=== PATIENT | male | born 1955 | race Caucasian/White ===

== ENCOUNTER → 2023-10-12 15:45 | Outpatient (REF) | payer MEDICARE, BC, SELFPAY | LOC: MRI 3T 15:45 | PROVIDERS: ATTENDING PHYSICIAN Orthopaedic Surgery Orthopaedic Trauma | DX: M67.911 Unspecified disorder of synovium and tendon, right shoulder (principal) | CPT/HCPCS: 73221 ==

== ENCOUNTER → 2024-02-21 08:17 | Outpatient (REF) | payer MEDICARE, BC, SELFPAY ==
[2024-02-21 10:27] LABS: ALT (SGPT) 22 U/L (0-50); AST (SGOT) 25 U/L (17-59); Albumin 3.9 g/dl (3.5-5.0); Alkaline Phosphatase 93 U/L (38-126); Blood Urea Nitrogen 26 mg/dl (9-20); Calcium 11.1 mg/dl (8.4-10.2); Carbon Dioxide 20 mmol/L (22-30); Chloride 109 mmol/L (98-107); Glucose 121 mg/dl (70-99); HDL Cholesterol 37 mg/dl; LDL Cholesterol, Calculated 74 mg/dl; Potassium 4.1 mmol/L (3.5-5.1); Sodium 141 mmol/L (135-145); Total Bilirubin 0.6 mg/dl (0.2-1.3); Total Cholesterol 133 mg/dl (50-199); Total Protein 6.4 g/dl (6.3-8.2); Triglyceride 110 mg/dl (10-149); Very Low Density Lipoprotein 22 mg/dl (0-30); eGFR 54.07
== END ==
LOC: REG 08:17
PROVIDERS: ATTENDING PHYSICIAN Internal Medicine Cardiovascular Disease; FAMILY PHYSICIAN Family Medicine
DX: E78.5 Hyperlipidemia, unspecified (principal)
CPT/HCPCS: 36415; 80053; 80061

== ENCOUNTER 2024-09-28 14:42 | Emergency (ER) | payer MEDICARE, BC, SELFPAY ==
[2024-09-28 14:46] VITALS: BP 147/71
[2024-09-28 15:49] LABS: % Basophils 0.4 % (0-2); % Immature Granulocytes 0.3 % (0-0.5); % Lymphocytes 25.3 % (20.5-51.1); % Monocytes 6.8 % (1.7-9.3); % Neutrophils 65.2 % (42.2-75.2); Absolute Eosinophils 0.2 10^3/uL (0-0.7); Absolute Lymphocytes 1.9 10^3/uL (1.2-3.4); Absolute Monocytes 0.5 10^3/uL (0.1-0.6); Absolute Neutrophils 4.9 10^3/uL (1.4-6.5); Hematocrit 43.3 % (39.0-52.0); Hemoglobin 15.6 g/dL (13.0-18.0); Mean Corpuscular Hgb 32.5 pg (27.0-31.0); Mean Corpuscular Volume 90.2 fL (80.0-94.0); Mean Platelet Volume 10.1 fL (7.4-10.4); Nucleated Red Blood Cells % 0 % (-); Platelet Count 157 10^3/uL (130-400); Red Cell Dist. Width 12.2 % (11.5-14.5); White Blood Cell Count 7.5 10^3/uL (4.8-10.8)
[2024-09-28 15:55] VITALS: BP 146/112; BMI 28.5
[2024-09-28 16:00] VITALS: BP 120/67
[2024-09-28 16:07] LABS: ALT (SGPT) 25 U/L (0-50); AST (SGOT) 30 U/L (17-59); Alkaline Phosphatase 75 U/L (38-126); Blood Urea Nitrogen 52 mg/dl (9-20); Calcium 10.7 mg/dl (8.4-10.2); Carbon Dioxide 24 mmol/L (22-30); Chloride 106 mmol/L (98-107); Estimated Creatinine Clearance 36 ml/min; Glucose 108 mg/dl (70-99); Potassium 3.6 mmol/L (3.5-5.1); Sodium 140 mmol/L (135-145); Total Bilirubin 1.2 mg/dl (0.2-1.3); Total Protein 6.9 g/dl (6.3-8.2); eGFR 37.48
--- NOTE | 2024-09-28 16:10 | ED.GENMED ---
History of Present Illness
<Devora Wilkes NP - Last Filed: 09/28/24 22:36>
General
Chief Complaint: Breathing Problem
Source: patient
Exam Limitations: none
Time Seen by Provider: 09/28/24 15:49
Nursing documentation reviewed up to this point in time: agreed with
History of Present Illness
History of Present Illness:
Patient to ED with complaint of fatigue, cough, SOB, diarrhea. Symptoms started on Tuesday. No fever but felt chilled. Poor appetite. He was evaluated by PCP today and sent to ED for course breath sounds and aflutter on EKG. He states he is
always in fib/flutter. On xarelto and reports compliance iwth meds. To ED accompanied by family for eval.
Past History
<Devora Wilkes FIRE INVESTIGATION MANAGER - Last Filed: 09/28/24 22:36>
Past History
ED Past Medical History: Arrthythmia (afib), HTN and Hypercholesterolemia
ED Past Surgical History: Orthopedic
Social History
Tobacco: Non-smoker
Alcohol: Other (10-12 beers/week)
Personal:
Living: with family
Review of Systems
<Devora Wilkes NP - Last Filed: 09/28/24 22:36>
Review of Systems
Allergies reviewed?: Yes
All Other Systems: ROS reviewed and negative except as documented in HPI and ROS
Constitutional: Reports fatigue and chills
EENT: Reports no symptoms
Respiratory: Reports cough and trouble breathing
Cardiac: Reports no symptoms
ABD/GI: Reports diarrhea
: Reports no symptoms
Musculoskeletal: Reports no symptoms
Skin: Reports no symptoms
Neurological: Reports weakness
Psychiatric: Reports no symptoms
Phy Exam
<Devora Wilkes NP - Last Filed: 09/28/24 22:36>
General Physical Exam
General Presentation: mild distress
General age: appears stated age
General Skin: warm and dry
General Habitus: normal
General Mental: alert
Cardiovascular Exam
Cardiovascular Exam: other (aflutter, rate 72)
Pulmonary Exam
Pulmonary Exam: decreased breath sounds
Cough: coarse cough
Musculoskeletal Exam
Musculoskeletal Exam: full ROM, no edema and neuro vasc intact
Skin Exam
Skin Exam: normal color, warm/dry and no rash
Psychiatric Exam
Psychiatric Exam: normal mood/affect
Scores
<Devora Wilkes FIRE INVESTIGATION MANAGER - Last Filed: 09/28/24 22:36>
Heart Failure Risk
Heart Failure Risk Score: Not Applicable
Course
<Devora Wilkes FIRE INVESTIGATION MANAGER - Last Filed: 09/28/24 22:36>
Orders/Labs/Results
Orders:
Orders
09/28/24 14:44
EKG [Electrocardiogram (*1)] Urgent
Reason for Study: Chest Pain
EKG- Treatment ONCE
09/28/24 15:42
Complete Blood Count/With Diff Urgent
Comprehensive Metabolic Panel Urgent
Troponin I Urgent
09/28/24 15:58
CR Chest - 2 Views Urgent
Comment:
Reason For Exam: SOb
09/28/24 16:12
0.9% Sodium Chloride 1000 ml [Nss] 1,000 ml IV BOLUS
09/28/24 16:31
COVID-19 Antigen Urgent
Source: Nasal Swab
Influenza A+B Rapid Molecular Urgent
ASHLEY Source: Nasal Swab
Specimen Description:
09/28/24 17:33
ECG [Electrocardiogram (*1)] Urgent
Reason for Study: Chest Pain
Other Reason for Exam: Serial troponin
EKG- Treatment ONCE
09/28/24 17:35
Add On- LAB Urgent
Tests Added?: BNP
09/28/24 17:43
NT-proBNP Urgent
Comment: ADD ON
Troponin I Urgent
09/28/24 18:50
Furosemide [Lasix] 40 mg IV NOW STA
Abnormal Lab Results
09/28/24
15:42
MCH 32.5 H pg
(27.0-31.0)
BUN 52 H mg/dl
(9-20)
Creatinine 1.9 H mg/dL
(0.7-1.3)
Glucose 108 H mg/dl
(70-99)
Calcium 10.7 H mg/dl
(8.4-10.2)
Troponin I 0.037 H* ng/ml
09/28/24 15:42
09/28/24 15:42
Vital Signs
Initial and Last Documented VS:
Initial Vital Signs
Temp Pulse Resp BP Pulse Ox
98.5 F 72 18 147/71 96
09/28/24 14:46 09/28/24 14:46 09/28/24 14:46 09/28/24 14:46 09/28/24 14:46
Last Documented Vital Signs
Temp Pulse Resp BP Pulse Ox
98.5 F 73 18 140/82 96
09/28/24 14:46 09/28/24 20:00 09/28/24 20:00 09/28/24 20:00 09/28/24 20:00
<Devan Harris, DO - Last Filed: 09/28/24 17:14>
Orders/Labs/Results
Orders:
Orders
09/28/24 14:44
EKG [Electrocardiogram (*1)] Urgent
Reason for Study: Chest Pain
EKG- Treatment ONCE
09/28/24 15:42
Complete Blood Count/With Diff Urgent
Comprehensive Metabolic Panel Urgent
Troponin I Urgent
09/28/24 15:58
CR Chest - 2 Views Urgent
Comment:
Reason For Exam: SOb
09/28/24 16:12
0.9% Sodium Chloride 1000 ml [Nss] 1,000 ml IV BOLUS
09/28/24 16:31
COVID-19 Antigen Urgent
Source: Nasal Swab
Influenza A+B Rapid Molecular Urgent
ASHLEY Source: Nasal Swab
Specimen Description:
09/28/24 17:33
ECG [Electrocardiogram (*1)] Urgent
Reason for Study: Chest Pain
Other Reason for Exam: Serial troponin
EKG- Treatment ONCE
09/28/24 17:35
Add On- LAB Urgent
Tests Added?: BNP
09/28/24 17:43
NT-proBNP Urgent
Comment: ADD ON
Troponin I Urgent
09/28/24 18:50
Furosemide [Lasix] 40 mg IV NOW STA
Abnormal Lab Results
09/28/24
15:42
MCH 32.5 H pg
(27.0-31.0)
BUN 52 H mg/dl
(9-20)
Creatinine 1.9 H mg/dL
(0.7-1.3)
Glucose 108 H mg/dl
(70-99)
Calcium 10.7 H mg/dl
(8.4-10.2)
Troponin I 0.037 H* ng/ml
09/28/24 15:42
09/28/24 15:42
Vital Signs
Initial and Last Documented VS:
Initial Vital Signs
Temp Pulse Resp BP Pulse Ox
98.5 F 72 18 147/71 96
09/28/24 14:46 09/28/24 14:46 09/28/24 14:46 09/28/24 14:46 09/28/24 14:46
Last Documented Vital Signs
Temp Pulse Resp BP Pulse Ox
98.5 F 73 18 140/82 96
09/28/24 14:46 09/28/24 20:00 09/28/24 20:00 09/28/24 20:00 09/28/24 20:00
<Devora Wilkes NP - Last Filed: 09/28/24 22:36>
*Radiology
Radiology exam reviewed: radiology read reviewed
*Pulse Oximetry
Patient hypoxic: no
*EKG
Rate: normal
Rhythm: atrial flutter
*Critical Care Note
Total Time (30-74mins, 75-104mins- exclusive of procedures): Not Applicable
<Devora Wilkes NP - Last Filed: 09/28/24 22:36>
Update Note
Update Note:
Patient to ED with complaint of extreme fatigue. States he is only able to walk short distances before feeling like he is going to pass out. Symptoms started this weekend. Denies any CP/pressure. Labs reviewed. Creat elevated to 1. Patient
reports he has had little to eat or drink this past weekend due to his symptoms of extreme weakness/fatigue. EKg = aflutter. He reports this is his norm. On xarelto. Rate maintaining in mid 70's. Troponin 0.037, 0.026. BNP 3800, given 40mg IV
lasix. CXR atelectasis vs small pneumonia RLL. WBC normal, he is afebrile. Pulse ox 97% RA. Case discussed with Dr. Gonzalez who evaluated this patient in the ED. He does not feel that his symptoms are as a result of a new cardiac issue.
Agrees with IV lasix. No further need to trend troponin. Patient will be admitted to hospitalist service for weakness, activity intolerance. Discussed with patient and family and he is agreeable to plan.
Patient and family spoke [facility] hospitalist and are confident that he can return home tonight. Agree to follow up with Cardiology on Tuesday as discussed. He was given instructions on s/s to return to ED and he is agreeable to plan..
ED Attending Note
<Devora Wilkes FIRE INVESTIGATION MANAGER - Last Filed: 09/28/24 22:36>
-
Portions of this chart may have been created with voice recognition software.� Occasional wrong word or��sound alike� substitutions may have occurred due to the inherent limitations of voice recognition software.
<Devan Harris DO - Last Filed: 09/28/24 17:14>
ED Attending Note
Patient seen and examined by attending physician: Yes
I performed the substantive portion of visit, reviewed & personally made and approve the management plan that is documented in note by myself or RYLAND.: Yes
ED Attending Note:
I evaluated patient at bedside. The patient has some degree of shortness of breath which sounds chronic but more recently he has been having overwhelming fatigue with exertion along with sensation that he might pass out. He is in chronic
A-fib/flutter compliant with Xarelto. His white count and hemoglobin are normal however his creatinine has worsened compared to baseline today with a creatinine of 1.9. His troponin is also borderline at 0.037. He was given IV fluids. He tells
me that at rest he does not feel bad.
Discharge Plan
Departure
Patient Disposition: Home (Routine Discharge)
Date of Disposition: 09/28/24
Time of Disposition: 19:09
Patient with high blood pressure during this ER visit?: Yes
Condition: Fair
Covid-19: Not Applicable
Discharge Problem:
Weakness
Instructions: Fatigue (DC), Generalized Weakness (DC)
Prescriptions:
No Action
aspirin 81 MG tablet,delayed release (DR/EC)
81 mg PO DAILY
amlodipine 10 MG tablet
10 mg PO DAILY
atorvastatin 20 MG tablet
20 mg PO Q48H@1700
Xarelto 20 MG tablet
20 mg PO QPM
metoprolol succinate [Toprol XL] 50 mg Tablet Extended Release 24 Hr
50 mg PO DAILY
chlorthalidone 25 mg Tablet
25 mg PO DAILY
valsartan 320 mg Tablet
320 mg PO DAILY
Referrals:
Pedro Bashir MD [Family Provider] -
Clay Gonzalez MD [Active] - Call in 1-3 days for appt
Activity Restrictions/Additional Instructions:
Return to the emergency department immediately for any changes in/worsening of your symptoms.
Interventions
Interventions:
*Risk Screen - Suicide Last Done: 09/28/24 14:46
*General Assessment Last Done: 09/28/24 14:46
*Neglect/Abuse Screening Last Done: 09/28/24 14:46
*ED- Fall Risk Assessment Last Done: 09/28/24 15:51
*ED COVID-19 Vaccine History Last Done: 09/28/24 15:51
*Nursing Disposition Last Done: 09/28/24 20:20
ED- Cardiac Assessment Last Done: 09/28/24 15:53
ED- Pulmonary Assessment Last Done: 09/28/24 15:53
Discharge Date and Time
Discharge Date/Time: 09/28/24 20:21
Print Language: BRUNEIAN
[2024-09-28 16:22] LABS: Troponin I 0.037 ng/ml
[2024-09-28] MEDS: NSS 1000 IV (16:41)
[2024-09-28 17:00] VITALS: BP 114/74
[2024-09-28 17:04] LABS: COVID-19 Antigen Negative (Negative)
--- NOTE | 2024-09-28 17:48 | CON.CAR ---
Addendum entered and electronically signed by Clay Gonzalez MD 09/28/24 18:08:
I saw and examined the patient.
The RETREADER's note was reviewed and I agree with the note.
Comment: 68 y/o male (patient Dr. Pike) with CAD with hx PCI 2003, moderate AR, mild , PAF on Xarelto, HTN, and dyslipidemia who is here for evaluation of symptoms of fatigue, cough, chills, diarrhea, night sweats since Tuesday. Fatigue is
main issue.
This does not appear at this point to be a primary cardiac issue. His main concern is his fatigue. He does have considerable aortic valve disease as well as CAD, but symptoms are not typical for his angina. It is unclear to me the exact cause of
his fatigue and recommend further workup including chest x-ray. His DK and significant valve disease is likely the reason for his mildly elevated troponin.
He needs a nonurgent ischemic evaluation and echocardiogram but these do not need to happen this hospitalization; unless something changes clinically.
Original Note:
Consultation
Consultation Request
Date/Time Consultation Requested: 09/28/241729
Date/Time Consultation Performed: 09/28/241729
Requesting Provider: Emergency Department
Performing Provider: Marifer RIZVI for Dr. Gonzalez
Reason for Consultation: Atrial flutter, abnormal troponin
Medical History
-
Chief Complaint: fatigue
History of Present Illness:
68 y/o male (patient Dr. Pike) with CAD with hx PCI 2003, moderate AR, mild , PAF on Xarelto, HTN, and dyslipidemia who is here for evaluation of symptoms of fatigue, cough, chills, diarrhea, night sweats since Tuesday. Fatigue is main issue.
He denies SOB, but does have exertional fatigue. He is in no distress at the time of my assessment. His troponin is 0.037. EKG shows rate-controlled atrial flutter.
Past Medical History
Past Medical History: Arrhythmias, CAD, Hypercholesterolemia and Valvular Disease
Social History
Tobacco: Former Smoker
Alcohol: Other (drinks beer)
Personal:
Living: With Family
Family History
Family History: CAD (dad)
Allergies / Home Medications
Allergy/AdvReac Type Severity Reaction Status Date / Time
heparin Allergy Hives Verified 04/25/19 00:53
�Medication �Instructions �Recorded �Confirmed �Type
amlodipine 10 mg tablet 10 mg PO DAILY 12/20/13 09/28/24 History
aspirin 81 mg tablet,delayed 81 mg PO DAILY 12/20/13 09/28/24 History
release
atorvastatin 20 mg tablet 20 mg PO Q48H@1700 10/22/16 09/28/24 History
rivaroxaban 20 mg tablet (Xarelto) 20 mg PO QPM 04/25/19 09/28/24 History
chlorthalidone 25 mg tablet 25 mg PO DAILY 09/28/24 09/28/24 History
metoprolol succinate 50 mg 50 mg PO DAILY 09/28/24 09/28/24 History
tablet,extended release 24 hr
(Toprol XL)
valsartan 320 mg tablet 320 mg PO DAILY 09/28/24 09/28/24 History
Review of Systems
-
History Source: Patient
All other systems: Negative unless noted
Constitutional: Fatigue, Night Sweats and Chills
Abdomen/GI: Diarrhea
Physical Exam
Vital Signs
Temp Pulse Resp BP Pulse Ox
98.5 F 70 19 114/74 96
09/28/24 14:46 09/28/24 17:30 09/28/24 17:30 09/28/24 17:00 09/28/24 17:30
Lab Results
09/28/24 15:42
09/28/24 15:42
Troponin I 0.037 ng/ml H* 09/28/24 15:42
Physical Exam
General: Well Developed, Well Nourished and No Apparent Distress
HEENT: Normocephalic and Anicteric
Respiratory: Other (right lung base, coarse lung sounds)
Cardiac: Regular Rhythm and Murmur (II/ systolic)
Musculoskeletal: No Edema
Skin: Warm and Dry
Neuro: AO x 3
Psych: Calm
Impression / Plan
-
Fatigue/chills/diarrhea/night sweats/cough:
-viral illness?
-CXR is pending
Aortic stenosis and regurgitation:
-will need updated echo soon
CAD with Hx PCI:
-denies any of his previous anginal symptoms, but will need to have ischemic evaluation
-on ASA and statin
PAF:
-currently in rate-controlled atrial flutter
-continue metoprolol and Xarelto
DK on CKD:
-monitor s/p IVF
Abnormal troponin:
-denies any CP
-suspect acute, non-ischemic myocardial injury, but etiology not yet clear
-trend to peak
-echo when able
Data Reviewed
-
EKG: Tracing Personally Visualized and interpreted (Aflutter 71 BPM)
Radiology: Other (CXR pending)
Medical Tests (Nuc Med, Echo etc): Report Reviewed by me (02/15/23: EF 55-60%. Stage II diastolic dysfunction. Calcified RCC with restricted movement and eccentric moderate aortic regurgitation and mild aortic stenosis.)
Labs: Labs Reviewed by me
[2024-09-28 18:14] LABS: NT-proBNP 3890 pg/ml; Troponin I 0.026 ng/ml
[2024-09-28 19:24] VITALS: BP 146/65
[2024-09-28 20:00] VITALS: BP 140/82
== END 2024-09-28 20:21 | disposition home or self-care (01) ==
LOC: EMR 14:42
PROVIDERS: Nurse Practitioner; EMERGENCY PHYSICIAN Emergency Medicine; FAMILY PHYSICIAN Family Medicine
DX: R53.1 Weakness (principal); I25.10 Atherosclerotic heart disease of native coronary artery without angina pectoris; I48.0 Paroxysmal atrial fibrillation; Z87.891 Personal history of nicotine dependence; N18.9 Chronic kidney disease, unspecified; I12.9 Hypertensive chronic kidney disease with stage 1 through stage 4 chronic kidney disease, or unspecified chronic kidney disease; E78.00 Pure hypercholesterolemia, unspecified; Z11.52 Encounter for screening for COVID-19
CPT/HCPCS: 99285; 96360; 71046; 80053; 83880; 84484; 85025; 87502; 87811; 93005

== ENCOUNTER → 2024-10-02 11:00 | Outpatient (REF) | payer MEDICARE, BC, SELFPAY | LOC: RCS 11:00 | PROVIDERS: ATTENDING PHYSICIAN Student in an Organized Health Care Education/Training Program; FAMILY PHYSICIAN Family Medicine | DX: R06.02 Shortness of breath (principal); I35.0 Nonrheumatic aortic (valve) stenosis | CPT/HCPCS: 93306 ==

== ENCOUNTER → 2025-03-13 13:42 | Outpatient (REF) | payer MEDICARE, BC, SELFPAY | LOC: DHVS 13:42 | PROVIDERS: ATTENDING PHYSICIAN Student in an Organized Health Care Education/Training Program; FAMILY PHYSICIAN Family Medicine | DX: I25.10 Atherosclerotic heart disease of native coronary artery without angina pectoris (principal) | CPT/HCPCS: 93880 ==

== ENCOUNTER 2025-03-15 09:37 | Emergency (ER) | payer MEDICARE, BC, SELFPAY ==
[2025-03-15 09:50] VITALS: BP 135/68
--- NOTE | 2025-03-15 09:55 | ED.GENMED ---
History of Present Illness
General
Chief Complaint: Skin Surface Trauma
Time Seen by Provider: 03/15/25 09:55
History of Present Illness
History of Present Illness:
FOCUSED PAST MEDICAL HISTORY
- Paroxysmal A-fib on Xarelto
REVIEW OF OLD RECORDS
- The patient was seen here with weakness in September 2024 and was seen by cardiology at that time
Note:
CHIEF COMPLAINT(S)
Laceration to the fingernail area resulting from a table saw injury.
HISTORY OF PRESENT ILLNESS
The patient is a 69-year-old male who presents with a laceration to the finger caused by a table saw accident occurring in his personal workshop in [place]. The injury resulted in the cutting of the fingernail and a surrounding flap of tissue
that is described as dangling. The patient is currently on Rivaroxaban (Xarelto), which is known to increase bleeding risk. He applied paper as an initial measure to control bleeding. The patient also reports previous recent surgery, suggesting
updated tetanus immunizations�however this is not confirmed in [facility] review. The physician plans to remove the non-viable flap of tissue and apply stitches to both deeper tissues and the surface for improved closure, aiming to approximate the
wound margins better. A digital block will be applied to numb the finger before any intervention.
MEDICATIONS
Rivaroxaban (Xarelto).
REVIEW OF SYSTEMS
- Integumentary: Laceration in the fingernail area with associated soft tissue flap.
- Hematological: Increased bleeding tendencies due to anticoagulant therapy.
PHYSICAL EXAM
-General: Well appearing in no distress
-HEENT: Moist oral mucosa
-Neurologic: Excellent strength all extremities, no obvious coordination deficits
-Psychiatric: Appropriate mental status, normal insight and judgement
-Extremities: There is a 3 cm very irregular laceration with nonviable skin located to the radial aspect of the dorsal distal left fourth digit, scant bleeding noted, this involves the radial portion of the nail which is missing, there is also
absence of some soft tissue
-Skin: No rash, no lesions
PLAN
1. Perform a digital block to anesthetize the finger.
2. Remove the non-viable tissue flap.
3. Apply sutures to approximate the wound edges, both in deeper tissues and on the surface.
4. Ensure the tetanus immunization is up-to-date.
DIFFERENTIAL DIAGNOSIS
The Differential Diagnosis includes, in no particular order and is not limited to:
1. Laceration repair.
2. Hematoma formation.
3. Infection due to open wound.
4. Tissue necrosis.
5. Delayed healing secondary to anticoagulant use.
6. Peripheral nerve injury.
7. Tendon injury.
8. Trigger finger due to scar formation.
9. Foreign body in wound.
10. Compartment syndrome.
RADIOLOGY
- Considered x-ray however the patient and I agree that he most likely missed the distal phalanx. Will place on antibiotics regardless.
SUMMARY OF ENCOUNTER
The patient, a 69-year-old male, presented with a laceration to the finger resulting from a table saw accident in his workshop. The injury involved partial amputation and a laceration lateral/radial to the distal phalanx. Due to the risk of
increased bleeding from ongoing Rivaroxaban therapy, careful attention was paid to hemostasis. The laceration was copiously irrigated, and Chloraprep was utilized for antiseptic purposes. Due to the partial amputation, two vicryl stitches were
placed for the deep layer and two nylon sutures for the skin layer. An x-ray was considered but deferred with the patient�s agreement as it would not alter treatment. Antibiotics were administered to prevent infection, and the patients tetanus
status was updated.
PLAN
- Monitor for signs of infection such as redness, warmth, swelling, and increased pain.
- Keep the finger clean and dry.
- Advise patient to avoid unnecessary use of the injured hand to promote healing.
PROCEDURES
- Wound irrigation with copious saline and Chloraprep application.
- Placement of two vicryl sutures for the deep tissue layer.
- Placement of two nylon sutures for the skin layer.
MEDICATION RECONCILIATION
- Antibiotics prescribed to prevent infection.
MEDICAL DECISION MAKING
- Number and Complexity of Problems Addressed: Chronic conditions affecting care include the increased bleeding risk due to anticoagulant (Rivaroxaban) use.
- Complexity of Data Reviewed: Differential diagnosis includes laceration repair, infection, tissue necrosis, and delayed healing due to anticoagulant therapy.
- Risk: Prescription drug management was considered, and antibiotics were prescribed to prevent infection. The decision was made to forgo x-ray imaging as it would not influence immediate management.
DIAGNOSIS
- Laceration with partial amputation of finger (ICD-10: S61.219)
Past History
Past History
ED Past Medical History: Arrthythmia (afib), HTN and Hypercholesterolemia
ED Past Surgical History: Orthopedic
Social History
Tobacco: Non-smoker
Alcohol: Other (10-12 beers/week)
Personal:
Living: with family
Phy Exam
Physical Exam
Physical Exam:
See HPI
Course
Orders/Labs/Results
Orders:
Orders
03/15/25 10:37
Tetanus/Diphth/Acelpertussis [Adacel] 0.5 ml IM .ONCE ONE
Vital Signs
Initial and Last Documented VS:
Initial Vital Signs
Temp Pulse Resp BP Pulse Ox
36.6 C 50 18 135/68 98
03/15/25 09:50 03/15/25 09:50 03/15/25 09:50 03/15/25 09:50 03/15/25 09:50
Last Documented Vital Signs
Temp Pulse Resp BP Pulse Ox
36.6 C 50 18 135/68 98
03/15/25 09:50 03/15/25 09:50 03/15/25 09:50 03/15/25 09:50 03/15/25 09:56
Procedures
Laceration Closure
Left Distal Radial Fourth:
Status of Wound: clean
Size of Wound in cm: 3
Description of Wound Edges: ragged and flap-poorly vascularized
Preparation: cleaned with saline and other (Hibiclens)
Anesthesia: Digital-Regional
Revision/Debridement: minor revision and irrigate-direct pressure
Wound exploration: extensive cleaning of contaminated wound and explored to base- no FB
Type of Closure: layered closure (4-0 Vicryl plus) and interrupted sutures
Skin Closure Material: 4-0 nylon and 4-0 vicryl
Number of sutures: 4
*Pulse Oximetry
SaO2: 98
Oxygen Mode of Delivery: Room air
Patient hypoxic: no
*Critical Care Note
Total Time (30-74mins, 75-104mins- exclusive of procedures): Not Applicable
ED Attending Note
-
Portions of this chart may have been created with voice recognition software.� Occasional wrong word or��sound alike� substitutions may have occurred due to the inherent limitations of voice recognition software.
Discharge Plan
Departure
Patient Disposition: Home (Routine Discharge)
Date of Disposition: 03/15/25
Time of Disposition: 10:39
Patient with high blood pressure during this ER visit?: Yes
Discharge Problem:
Finger laceration
Instructions: Laceration Repair With Stitches (DC), BLOOD PRESSURE
Prescriptions:
New
cephalexin 500 mg tablet
500 mg PO TID Qty: 12 0RF
No Action
aspirin 81 MG tablet,delayed release (DR/EC)
81 mg PO DAILY
amlodipine 10 MG tablet
10 mg PO DAILY
atorvastatin 20 MG tablet
20 mg PO Q48H@1700
Xarelto 20 MG tablet
20 mg PO QPM
metoprolol succinate [Toprol XL] 50 mg Tablet Extended Release 24 Hr
50 mg PO DAILY
chlorthalidone 25 mg Tablet
25 mg PO DAILY
valsartan 320 mg Tablet
320 mg PO DAILY
Activity Restrictions/Additional Instructions:
I placed 2 deep stitches that will dissolve on their own. I also placed 2 blue stitches that will need to be taken out by your doctor in approximately 7 to 10 days. I looked at your old records but I did not see any signs of a tetanus shot that
was recently given. Therefore we have ordered a tetanus shot. I am also sending for an antibiotic to help prevent infection.
Interventions
Interventions:
*Risk Screen - Suicide Last Done: 03/15/25 09:50
*General Assessment Last Done: 03/15/25 09:50
Discharge Date and Time
Print Language: MALAGASY
[2025-03-15] MEDS: ADACEL 0.5 ML IM (11:25)
== END 2025-03-15 11:35 | disposition home or self-care (01) ==
LOC: EMR 09:37
PROVIDERS: EMERGENCY PHYSICIAN Emergency Medicine; FAMILY PHYSICIAN Family Medicine
DX: S61.315A Laceration without foreign body of left ring finger with damage to nail, initial encounter (principal); W31.2XXA Contact with powered woodworking and forming machines, initial encounter; I48.0 Paroxysmal atrial fibrillation; Z79.01 Long term (current) use of anticoagulants; E78.00 Pure hypercholesterolemia, unspecified; I10 Essential (primary) hypertension; Z23 Encounter for immunization
CPT/HCPCS: 90471; 12042; 99283; 90715

== ENCOUNTER → 2025-05-07 08:09 | Outpatient (REF) | payer MEDICARE, BC, SELFPAY ==
[2025-05-07 09:17] LABS: Hematocrit 41.6 % (39.0-52.0); Hemoglobin 14.1 g/dL (13.0-18.0); Mean Corp Hgb Conc. 33.9 g/dL (33.0-37.0); Mean Corpuscular Volume 96.5 fL (80.0-94.0); Nucleated Red Blood Cells % 0 % (-); Platelet Count 234 10^3/uL (130-400); Red Cell Dist. Width 12.5 % (11.5-14.5)
[2025-05-07 09:58] LABS: ALT (SGPT) 28 U/L (0-50); AST (SGOT) 22 U/L (17-59); Albumin 4.0 g/dl (3.5-5.0); Alkaline Phosphatase 72 U/L (38-126); Blood Urea Nitrogen 31 mg/dl (9-20); Calcium 10.9 mg/dl (8.4-10.2); Carbon Dioxide 24 mmol/L (22-30); Chloride 108 mmol/L (98-107); Glucose 109 mg/dl (70-99); HDL Cholesterol 39 mg/dl; LDL Cholesterol, Calculated 79 mg/dl; Potassium 3.9 mmol/L (3.5-5.1); Sodium 140 mmol/L (135-145); Total Protein 6.8 g/dl (6.3-8.2); Very Low Density Lipoprotein 16 mg/dl (0-30); eGFR 45.78
[2025-05-07 10:42] LABS: Glycohemoglobin (HgbA1c) 5.8 % (4.0-5.9)
== END ==
LOC: REG 08:09
PROVIDERS: ATTENDING PHYSICIAN Family Medicine; REFERRING PHYSICIAN Student in an Organized Health Care Education/Training Program
DX: I73.9 Peripheral vascular disease, unspecified (principal); I48.0 Paroxysmal atrial fibrillation; I25.10 Atherosclerotic heart disease of native coronary artery without angina pectoris; J43.2 Centrilobular emphysema; N18.31 Chronic kidney disease, stage 3a; R73.03 Prediabetes
CPT/HCPCS: 36415; 80053; 80061; 83036; 85025